=== PATIENT | male | born 1985 | race Asian ===

== ENCOUNTER → 2019-10-09 | Outpatient (CLI) | payer OTHER ==
--- NOTE | 2019-10-05 13:26 | NUR ---
Message left on machine with instructions along with call back number.
[~2019-10-09] VITALS: Ht 167.6 cm; Wt 65.4 kg
[~2019-10-09] MED LIST: VIREAD PO
[2019-10-09 11:55] VITALS: BP 119/71; PULSE 50
[2019-10-09 12:10] LABS: INR 1.1 (0.8-3.0); PROTHROMBIN TIME 12.3 SECONDS (9.7-12.8)
[2019-10-09 12:40] VITALS: BP 112/68; PULSE 51
--- NOTE | 2019-10-09 12:40 | NUR ---
liver biopsy done under ultrasound by Dr Jensen
[2019-10-09 12:45] VITALS: BP 117/70; PULSE 51
[2019-10-09 13:18] VITALS: BP 112/71; PULSE 51
[2019-10-09 13:51] VITALS: BP 100/55; PULSE 52
[2019-10-09 14:30] VITALS: BP 111/56; PULSE 51
== END ==
LOC: COL.RAD 10-05 09:00
PROVIDERS: Radiology Diagnostic Radiology
DX: B19.10 Unspecified viral hepatitis B without hepatic coma (principal)